=== PATIENT | female | born 1945 | race Caucasian/White ===

== ENCOUNTER 2018-01-07 03:04 | Emergency (ER) | payer OTHER ==
[~2018-01-07] VITALS: Ht 162.6 cm; Wt 86.1 kg
[~2018-01-07 03:04] MED LIST: ACID CONTROL150 MG PO; ATENOLOL25 MG PO; DILTIAZEM 24HR180 MG PO; GEMFIBROZIL600 MG PO; LO-DOSE ASPIRIN81 M1 PO; NAPROSYN500 MG PO; PERCOCET 5/31 TABLET PO; PRAVACHOL40 MG PO; RANITIDINE HCL150 MG PO; ULTRAM50 MG PO; VITAMIN D31000 UNI2 PO
[2018-01-07 03:27] LABS: HEMATOCRIT 40.2 % (36.0-46.0); HEMOGLOBIN 13.8 G/DL (11.9-15.5); MCH 30.7 PG (29.0-34.0); MCHC 34.3 G/DL (30.0-36.0); MCV 89.5 FL (83-99); PLATELET COUNT 181 K/uL (156-360); RBC DIS.WIDTH-CV 13.3 % (11.8-14.6); RBC DIS.WIDTH-SD 43.6 % (39-53); RED BLOOD COUNT 4.49 M/uL (3.80-5.20); WHITE BLOOD COUNT 5.5 K/uL (4.1-10.2)
[2018-01-07 03:47] LABS: CHLORIDE 108 mEq/L (99-109); POTASSIUM 3.8 mEq/L (3.7-5.4); SODIUM 142 mEq/L (136-147)
[2018-01-07 03:48] LABS: GLUCOSE 114 mg/dL (70-99)
[2018-01-07 03:52] LABS: CREATININE 0.8 mg/dL (0.6-1.3); GFR ESTIMATE (CALCULATED) > 59 mL/min/
[2018-01-07 03:53] LABS: UREA NITROGEN (BUN) 14 mg/dL (9-23)
[2018-01-07 04:01] LABS: TROP-I INTERPRETATION NEGATIVE; TROPONIN-I < 0.01 ng/mL (0.0-0.30)
[2018-01-07 05:09] VITALS: BP 136/71
== END 2018-01-07 05:11 | disposition home or self-care (01) ==
LOC: EME 03:04
DX: I10 Essential (primary) hypertension (principal); R05 Cough; T46.1X5A Adverse effect of calcium-channel blockers, initial encounter; Z79.82 Long term (current) use of aspirin
CPT/HCPCS: 71046; 80048; 84484; 85027; 93005; 99281; 99285